=== PATIENT | female | born 1990 | race Caucasian/White ===

== ENCOUNTER 2016-11-14 17:23 | Emergency (ER) | payer SELFPAY ==
[2016-11-14] MEDS ORDERED: NORMAL SALINE 1,000 ML IV ONE (17:51)
[2016-11-14] MEDS ORDERED: diphenhydrAMINE HCL 50 MG/ML VIAL IV ONE ×2 (17:51→19:12)
[2016-11-14] MEDS ORDERED: KETOROLAC TROMETHAMINE 30 MG/ML VIAL IV ONE (17:51)
[2016-11-14] MEDS ORDERED: METOCLOPRAMIDE HCL 5 MG/ML VIAL IV ONE ×2 (17:52→19:12)
[2016-11-14] MEDS ORDERED: METHYLPREDNISOLONE SOD SUCC/PF 40 MG/ML VIAL IV ONE (17:56)
--- NOTE | 2016-11-14 17:56 | ERNOTE ---
<Nelli Nix - Last Filed: 11/14/16 19:01> Headache ER HPI - Narrative Date of Service: 11/14/16 - General Presenting Symptoms: headache, other - numbness / tingling on right side Time Seen by Provider: 11/14/16 17:41 Source: patient, family, RN notes reviewed Exam Limitations: clinical condition - Immun/Allergies/Home Medications Immunizations: IMMUNIZATION HX Immunizations Up to Date Yes History of Influenza Vaccine No Hx Pneumococcal Vaccination No Allergies/Adverse Reactions: Allergies amoxicillin Allergy (Verified 11/14/16 17:38) Hives cholecalciferol (vitamin D3) [From Ciferex] Allergy (Verified 10/06/16 17:10) folic acid [From Ciferex] Allergy (Verified 10/06/16 17:10) ketorolac tromethamine [From Toradol] Allergy (Verified 11/14/16 18:20) Home Medications: HOME MEDICATIONS NK [No Home Medication] 10/06/16 [Last Taken Unknown] - Pain Pain Score: 6 - headache - History of Present Illness Narrative: shaista is a 25 year old female who presents to the er with c/o headache for the last day. states that 45 minutes ago, she developed numbness/tingling on the right side. also c/o 45 minutes ago a brief episode where she had "trouble getting her words out." Timing of Headache: gradual, constant, persistent Context Headache: Absent: CO exposure, tick bite, sick contact, meningitis exposure, recent head injury < 24 hrs ago, recent head injury > 24 hrs, recent travel-outside [place] Quality: Present: sharp, throbbing Severity Maximum: Present: moderate, severe Severity-Currently: Present: moderate, severe Headache frequency: Present: chronic headaches, similar to previous headache Modifying Factors - (Improves): Reports: rest Modifying Factors - (Worsens): Reports: movement, exposure to light Associated Symptoms: Reports: facial pain, weakness, numbness/tingling, light- headedness, dizziness. Denies: fever/chills, vision changes, confusion, loss of consciousness, seizures, neck pain/stiffness Exacerbated by:: Reports: light, noise, movement Review of Systems - Review of Systems Constitutional: Present: malaise EYE: Present: no symptoms reported ENT: Present: no symptoms reported Respiratory: Present: no symptoms reported Cardiology: Present: no symptoms reported Gastrointestinal/Abdominal: Present: no symptoms reported Genitourinary: Present: no symptoms reported Musculoskeletal: Present: no symptoms reported Skin: Present: no symptoms reported Neurological: Present: headache, dizziness/light-headedness, weakness, numbness , tingling Endocrine: Present: no symptoms reported Hematologic/Lymphatic: Present: no symptoms reported Psych: Present: no symptoms reported All Other Systems: All systems neg except as marked - Patient's Past Medical History Patient History - Medical: Bipolar Patient History - Cardiac/Respiratory: No pertinent hx Patient History - Cancer: No Hx of Cancer Patient History - Surgical Procedures: , Tubal Ligation, Other Patient History - Other: None LMP (females 10-50): 1 month LMP (Calendar): 09/28/16 - Social History Living Situations: significant other Abuse History: No History of abuse Psych History: Hx of Bipolar Disorder Smoking Status: Current every day smoker Alcohol Use: occasionally Drug Use: none - Immunizations Immunizations Up to Date: Yes Hx Pneumococcal Vaccination: No History of Influenza Vaccine: No Physical Exam - Physical Exam General Appearance: Present: alert, moderate distress Eye Exam: Normal inspection: bilateral Ears, Nose, Throat: Present: normal ENT inspection, hearing grossly normal, normal pharynx Neck: Present: normal inspection, nontender, supple, full range of motion Respiratory: Present: no respiratory distress, normal breath sounds, no accessory muscle use, chest nontender, lungs clear Cardiovascular/Chest: Present: regular rate, rhythm, normal peripheral pulses, tachycardia Gastrointestinal/Abdominal: Present: nontender, nondistended, soft Rectal Exam: Present: deferred Back Exam: Present: normal inspection, normal range of motion Extremity Exam: Present: normal inspection, non-tender, no edema, normal range of motion Neurological Exam: Present: alert, oriented, normal mood/affect, advocacy director II-XII nml as tested, normal cerebellar test, other - right hand grasp mildly weaker than left otherwise neuro exam is unremarkable. Absent: facial droop Skin Exam: Present: normal color, warm/dry ED Progress - Date and Time Seen: Date and Time: 11/14/16 17:[address] lutz. updated him on case. no significant neuro change. pt states to me that she has had episodes just like this on when she is . again, spoke with dr lutz and then nursing staff - who agreed that cva alert did not need to be called. - Results and Orders Results and Orders: Laboratory Tests 11/14/16 18:00 WBC 6.8 RBC 5.14 Hgb 15.1 Hct 42.7 MCV 83.1 MCH 29.4 MCHC 35.4 RDW 11.9 Plt Count 321 MPV 8.7 Immature Gran % (Auto) 0.10 Immature Gran # (Auto) 0.01 Neutrophils % 51.6 Lymphocytes % 35.2 Monocytes % 7.2 Eosinophils % 4.9 H Basophils % 1.0 Nucleated RBC % 0.0 Neutrophils # 3.5 Lymphocytes # 2.4 Monocytes # 0.5 Eosinophils # 0.3 Absolute Basophils 0.1 Laboratory Tests 11/14/16 11/14/16 18:00 18:00 PT 10.2 INR (Anticoag Therapy) 0.98 PTT (David) 25.0 Sodium 139 Plasma Sodium 139 Potassium 4.1 Chloride 104 Carbon Dioxide 24.3 Anion Gap 14.8 H BUN 14 Creatinine 0.71 Est GFR (Non-Af Amer) 108 BUN/Creatinine Ratio 19.7 Random Glucose 104 Calcium 8.7 Calcium Adj for Albumin 8.5 Total Bilirubin 0.6 AST 23 ALT 53 Alkaline Phosphatase 57 Total Protein 7.7 Albumin 3.9 Laboratory Tests 11/14/16 18:00 Serum HCG, Qual Negative Laboratory Tests 11/14/16 11/14/16 18:24 18:24 Urine Color Yellow Urine Appearance Slightly cloudy Urine pH 7.5 Ur Specific [place] 1.020 Urine Protein Negative Urine Glucose (UA) Negative Urine Ketones Negative Urine Blood Negative Urine Nitrate Negative Urine Bilirubin Negative Urine Urobilinogen Normal Ur Leukocyte Esterase Negative Urine RBC None seen Urine WBC 0-5 Ur Epithelial Cells 0-5 Urine Bacteria 1+ H Urine Culture Comments No culture indicated Urine Opiates Screen Negative Barbiturate Screen Negative Ur Phencyclidine Scrn Negative Urine Amphetamine Negative U Benzodiazepines Scrn Negative Urine Cocaine Screen Negative Urine Marijuana (THC) Negative - Vital Signs Vital Signs: Vital Signs 11/14/16 17:30 Temperature 35.9 C L Pulse Rate 94 Respiratory 14 Rate Blood Pressure 123/74 O2 Sat by Pulse 97 Oximetry - EKG EKG: NSR, no ST T wave changes EKG read: Interp. by me - Progress/Reassessment Chief Complaint: Headache Progress:: Improved - Transfer of Care Physician Sign Out: Nelli Nix Brief History: 25 year old female who came into er with left sided headache, right sided numbness/tingling. ns bolus infusing. meds given iv for garcia. pain improved. awaiting chest xray and head ct results. Receiving Physician: Amado Sagastume Pending Results: CT/MRI results, Pain-control Expected Disposition: Discharge Departure Clinical Impression: Headache Qualifiers: Headache type: unspecified Headache chronicity pattern: acute headache Intractability: not intractable Qualified Code(s): R51 - Headache - Departure Disposition: Home self-care Condition: Good Instructions: Recurrent Migraine Headache, [id number] Additional Instructions: Follow up with your doctor next week. <Amado Sagastume - Last Filed: 11/14/16 20:07> Headache ER HPI - Immun/Allergies/Home Medications Immunizations: IMMUNIZATION HX Immunizations Up to Date Yes History of Influenza Vaccine No Hx Pneumococcal Vaccination No ED Progress - Vital Signs Vital Signs: Vital Signs 11/14/16 11/14/16 11/14/16 17:30 18:15 18:48 Temperature 35.9 C L Pulse Rate 94 77 80 Respiratory 14 14 14 Rate Blood Pressure 123/74 115/70 117/66 O2 Sat by Pulse 97 96 96 Oximetry 11/14/16 19:19 Temperature Pulse Rate 78 Respiratory 14 Rate Blood Pressure 122/63 O2 Sat by Pulse 97 Oximetry - X-Ray X-Ray #1 X-Ray: chest Interpretation: Interp. by me - non acute - CT/Ultrasound CT/Ultrasound Narrative: I've read the head CT report, it is normal.
[2016-11-14] MEDS ORDERED: METHYLPREDNISOLONE SOD SUCC/PF 40 MG/ML VIAL ONE (18:01)
[2016-11-14] MEDS ORDERED: diphenhydrAMINE HCL 50 MG/ML VIAL ONE ×2 (18:01→19:14)
[2016-11-14] MEDS ORDERED: METOCLOPRAMIDE HCL 5 MG/ML VIAL ONE ×2 (18:01→19:14)
[2016-11-14] MEDS ORDERED: KETOROLAC TROMETHAMINE 30 MG/ML VIAL ONE (18:01)
[2016-11-14 18:06] LABS: Hematocrit 42.7 % (37.0-47.0); Hemoglobin 15.1 gm/dL (12.5-16.0); Mean Cell Volume 83.1 fl (78-100); Mean Corpuscular Hemoglobin 29.4 pg (27-31); Mean Corpuscular Hgb Conc 35.4 g/dl (32-36); Mean Platelet Volume 8.7 fl (6.0-9.5); Neutrophil # 3.5 K/mm3 (1.3-6.0); Neutrophil % 51.6 % (42-75.0); Platelet Count 321 K/mm3 (150-450); Red Blood Count 5.14 M/mm3 (4.2-5.4); Red Cell Distribution Width 11.9 % (11.5-14.0); White Blood Count 6.8 K/mm3 (4.0-10.5)
[2016-11-14 18:22] LABS: Prothrombin Time (Patient) 10.2 Seconds (9.4-11.4)
[2016-11-14 18:25] LABS: Albumin * 3.9 gm/dl (3.4-5.0); Anion Gap 14.8 mmol/L (6.8-13.8); BUN/Creatinine Ratio 19.7 (9.0-21.6); Bilirubin, Total 0.6 mg/dL (0.0-1.1); Ca. Corrected For Albumin 8.5 mg/dL (8.4-10.2); Calcium * 8.7 mg/dL (7.9-10.9); Carbon Dioxide 24.3 mmol/L (24-32.6); Potassium 4.1 mmol/L (3.4-4.6); Total Protein 7.7 gm/dL (6.2-8.2)
[2016-11-14 18:33] LABS: INR 0.98 INR (0.90-1.10)
[2016-11-14 18:45] LABS: Urine Appearance Slightly Cloudy; Urine Bilirubin Negative (NEGATIVE); Urine Blood Negative /ul (NEGATIVE); Urine Color Yellow; Urine Ketone Negative (NEGATIVE); Urine pH 7.5 pH (5.0-7.0)
[2016-11-14 18:46] LABS: Urine Nitrite Negative (NEGATIVE); Urine Protein Negative (NEGATIVE); Urine Urobilinogen Normal (NORMAL)
[2016-11-14 18:47] LABS: Cocaine Ur Negative (NEGATIVE); Urine Bacteria 1+; Urine Barbiturate Negative (NEGATIVE); Urine Benzodiazepines Negative (NEGATIVE); Urine Opiates Negative (NEGATIVE); Urine PCP Negative (NEGATIVE); Urine RBC None Seen /hpf (0-5); Urine THC Negative (NEGATIVE); Urine WBC 0-5 /hpf (0-5)
[2016-11-14 20:26] VITALS: BP 105/63
== END 2016-11-14 20:25 | disposition home or self-care (01) ==
LOC: ER 17:23
DX: R51 Headache (principal); F17.210 Nicotine dependence, cigarettes, uncomplicated; R20.0 Anesthesia of skin
CPT/HCPCS: 36415; 70450; 71020; 80053; 81001; 84703; 85025; 85610; 85652; 85730; 93005; 96374; 96375; 99284; G0479